=== PATIENT | male | born 1995 | race Two or more races ===

== ENCOUNTER 2016-11-24 05:45 | Emergency (ER) | payer OTHER ==
[~2016-11-24] VITALS: Ht 200.7 cm; Wt 99.8 kg
[2016-11-24] MEDS ORDERED: ONDANSETRON HCL/PF 4 MG/2 ML VIAL ONE (06:58)
[2016-11-24] MEDS ORDERED: KETOROLAC TROMETHAMINE 15 MG/ML VIAL ONE (06:58)
[2016-11-24] MEDS ORDERED: IV SET PRIMARY 1 EA INFUS.SET MC ONE (06:59)
[2016-11-24] MEDS ORDERED: IV NS 0.9% 1,000 ML ONE (06:59)
[2016-11-24] MEDS ORDERED: IV NS 0.9% 1,000 ML BAG IV ONE (07:00)
[2016-11-24] MEDS ORDERED: ONDANSETRON HCL/PF 4 MG/2 ML VIAL IVP ONE (07:00)
[2016-11-24] MEDS ORDERED: KETOROLAC TROMETHAMINE INJ 30 MG/ML VIAL IV ONE (07:00)
[2016-11-24 08:10] VITALS: BP 122/66
== END 2016-11-24 08:15 | disposition home or self-care (01) ==
LOC: ER 05:45
DX: R11.2 Nausea with vomiting, unspecified (principal); R19.7 Diarrhea, unspecified; K22.6 Gastro-esophageal laceration-hemorrhage syndrome; F17.200 Nicotine dependence, unspecified, uncomplicated; M79.1 Myalgia
CPT/HCPCS: 96361; 96374; 96375; 99284; A4606; J1885; J2405; J7030; Z7610